=== PATIENT | female | born 1995 | race Caucasian/White ===

== ENCOUNTER → 2018-01-24 13:20 | Outpatient (CLI) | payer OTHER, SELFPAY ==
--- NOTE | 2018-01-24 13:28 | VDLE_ITS ---
Reason For Study: Pain RIGHT LEFT GSV is normal. GSV is normal. CFV is compressible, spontaneous, phasic, CFV is compressible, spontaneous, phasic, competent and demonstrates normal competent, and demonstrates normal augmentation. augmentation. FV is compressible, spontaneous, phasic, FV is compressible, spontaneous, phasic, competent and demonstrates normal competent and demonstrates normal augmentation. augmentation. POP V is compressible, spontaneous, phasic, POP V is compressible, spontaneous, phasic, competent and demonstrates normal competent and demonstrates normal augmentation. augmentation. T/P Trunk is compressible. T/P Trunk is compressible. PTV is compressible. PTV is compressible. RT PerV is compressible. LT PerV is compressible. Procedure Exam performed in department. A preliminary report was called and/or faxed to Nithin To. Interpretation Summary Deep veins of the lower extremities are bilaterally patent and compressible segmentally. There is no evidence of deep vein thrombosis on either side. Valvular competence appears intact within the proximal deep venous systems bilaterally. The greater saphenous veins appear bilaterally patent and compressible segmentally. Ordering Physician: Nithin To Referring Physician: Nithin To Performed By: Candace Mike, PINEDA, RVT
== END ==
PROVIDERS: Visit Provider Physician Assistant
DX: M79.661 Pain in right lower leg (principal); M79.662 Pain in left lower leg
CPT/HCPCS: 93970

== ENCOUNTER → 2018-01-29 12:29 | Outpatient (CLI) | payer OTHER, SELFPAY ==
--- NOTE | 2018-01-29 12:33 | MRI_ITS ---
STUDY: MRI RIGHT KNEE REASON FOR EXAM: Posterior pain and instability after injury in December. TECHNIQUE: Standardized fat and water weighted pulse sequences were obtained in all 3 orthogonal planes. COMPARISON: None. FINDINGS: Normal medial meniscus. Normal hyaline cartilage of the medial femorotibial compartment. Normal medial femoral condyle and tibial plateau. Normal medial collateral ligamentous complex (MCL). Normal distal semimembranosus, gracilis and semitendinosus tendons. Normal lateral meniscus. Normal hyaline cartilage of the lateral femorotibial compartment. Normal lateral femoral condyle and tibial plateau. Normal proximal tibiofibular articulation. Normal lateral collateral (fibular) ligament. Normal popliteus tendon. Normal biceps femoris tendon. There is mild interstitial edema in the distal anterior cruciate ligament (T2 sagittal image 11) suggestive of a low-grade sprain. Normal posterior cruciate ligament (PCL). Normal congruent patellofemoral articulation. Normal hyaline cartilage of the patellofemoral compartment. Normal medial and lateral patellar retinaculum. Normal quadriceps tendon. Normal patellar tendon. Normal Hoffa's fat pad. There is no joint effusion. The soft tissues are unremarkable. The otherwise visualized osseous structures are unremarkable. MRI/Lower Ext Joint Only (Routine) IMPRESSION: Low-grade sprain of the anterior cruciate ligament. Electronically Signed: Loco Moore MD at 13:54 EDT Tel , Service support ,
== END ==
PROVIDERS: Visit Provider Physician Assistant
DX: S83.511A Sprain of anterior cruciate ligament of right knee, initial encounter (principal)
CPT/HCPCS: 73721

== ENCOUNTER 2018-02-28 15:30 | Outpatient (RCR) | payer OTHER, SELFPAY ==
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
--- NOTE | 2018-03-05 09:50 | HP.PTDCSUM ---
HP - PT D/C Summary It has been my pleasure to treat TAYLOR TREJO under orders from SIRI Du, for the diagnosis of R ACL sprain for a total of 6 visit(s). Discharge Date: 02/28/18 Please see the following information for a summary of their discharge status. - Subjective Subjective: Pt. reports I am doing a lot better. She is pleased with PT. She reports occassional soreness with walking for 4+ hours and slight soreness by then end of the day. Pt. reports being HEP compliant without issues. Pt. reports being 99% better overall. - Pain Posterior R knee Pain Intensity (Out of 10): 0 - Overall Improvement % Improvement: 99 - Objective Objective/Function: ROM: 0-0-128deg mild soreness with end range flexion. MMT: 5/5 throughout knee and hip B LEs. GAIT: Normal pattern withtou icnrease in symptoms. STAIRS: normal patter no issues, no pain. Pt. reports being I with HEP and is pleased with progress. - Goals Goal 1:: Pt. to be I with HEP. Goal Progress: Goal Met Goal 2:: Pt. to have increased R knee ROM to 0-0-130deg without increase in pain allowing for increased gait mechanics. Goal Progress: Goal Met Goal 3:: Pt. to have increased RLE strength by 1/2 grade of all effected musculature allowing for increased stability at RLE. Goal Progress: Goal Met Goal 4:: Pt. to resume all walking with normal gait mechanics for unlimited distances without increase in symptoms. Goal Progress: Goal Met Goal 5:: Pt. to resume all work activities without issues. Goal Progress: Goal Met - Plan Plan: Pt. to be DC to HEP at this point in time. - D/C Information Discharge Comments: Pt. is back to work with all issues. Pt. progressed with ROM and strengthening as expected. She is back to all activities without limitions. She has mild soreness with end range flexion, but does not effect fuctional daily activities. Pt. will be DC to HEP at this point in time. If there are questions or concerns regarding this patient's physical therapy, please feel free to call me at [phone]. Thank you for the referral of this patient. Sincerely, Anson Osorio
== END 2018-02-28 19:00 | disposition home or self-care (01) ==
LOC: PT 15:30
PROVIDERS: Visit Provider Physician Assistant
DX: S83.511D Sprain of anterior cruciate ligament of right knee, subsequent encounter (principal)
CPT/HCPCS: 97014; 97110; 97161; G0283

== ENCOUNTER → 2019-09-17 13:13 | Outpatient (CLI) | payer OTHER, SELFPAY ==
[2019-09-17 12:18] VITALS: BMI 34.2
[2019-09-17 13:38] LABS: Absolute Lymphocyte Count 2.08 X10^3/uL (0.83-4.51); Absolute Neutrophil Count 7.1 X10^3/uL (2.0-7.7); Basophil# 0.02 X10^3/uL; Basophil% 0.2 % (0-1); Eosinophil# 0.02 X10^3/uL; Eosinophils% 0.2 % (0-5); Hematocrit 38.8 % (37-47); Hemoglobin 12.7 g/dL (12.0-15.0); Lymphocyte # 2.08 X10^3/ul (4.0); Lymphocyte % 21.2 % (19-41); Mean Corp Hgb Conc 32.7 g/dL (32-36); Mean Corpuscular Hgb 28.4 pg (27.0-32.0); Mean Corpuscular Volume 86.8 fL (81-99); Mean Platelet Vol. 10.3 fl (6.2-12.0); Monocyte# 0.54 X10^3/uL; Monocyte% 5.5 % (0-10); NRBC Flagged by Analyzer 0 % (0-5); Neutrophil % 72.4 % (47-70); Platelet Count 357 K/mm3 (150-450); RBC Distribution Width CV 12.5 % (11.6-14.6); RBC Distribution Width SD 39.4 fl (35.1-43.9); Red Blood Count 4.47 M/mm3 (4.2-5.4); White Blood Count 9.8 K/mm3 (4.4-11.0)
[2019-09-17 13:49] LABS: Glucose Challenge Gest 1H 50g 119 mg/dL (70-140)
[2019-09-17 14:31] LABS: HIV - WCH Non-Reactive (Nonreactive); Hepatitis B Surface Antigen Non-Reactive (Nonreactive); Hepatitis C Antibody Non-Reactive (Nonreactive); Rubella IgG 150.5 IU/mL
[2019-09-17 16:27] LABS: Amphetamine Urine VISTA NEGATIVE (<1000 ng/mL); Barbiturate Urine VISTA NEGATIVE (< 200 ng/mL); Benzodiazepine Urine VISTA NEGATIVE (< 200 ng/mL); Cocaine Urine VISTA NEGATIVE (< 300 ng/mL); Ecstacy Urine VISTA NEGATIVE (< 500 ng/mL); Methadone Urine VISTA NEGATIVE (< 300 ng/mL); PCP Urine VISTA NEGATIVE (< 25 ng/mL); THC Urine VISTA NEGATIVE (< 50 ng/mL); Vista UDS pH Range 6
--- NOTE | 2019-09-17 16:50 | US_ITS ---
STUDY: FIRST TRIMESTER OBSTETRICAL ULTRASOUND REASON FOR EXAM: Female, 24 years old. well-being. LMP: July 19, 2019. TECHNIQUE: Transvaginal TECHNICAL QUALITY: Adequate. PRIOR ULTRASOUND: None. FINDINGS: There is visualization of a single gestational sac in a normal intrauterine position. The mean sac diameter (MSD) measures 3.45 cm, indicating an estimated gestational age (EGA) of 8 weeks, 6 days. The gestational sac shape is within normal limits. There is a visualized yolk sac. The yolk sac measures 0.52 cm. The placenta is non-visualized. There is visualization of a live embryo. The crown-rump length (CRL) measures 1.9 cm, indicating an estimated gestational age (EGA) of 8 weeks, 4 days. There is demonstrated cardiac activity with a heart rate of 157 bpm. The estimated gestation age (EGA) by LMP is 8 weeks, 4 days. The estimated date of delivery (JULIA) by LMP is April 24, 2020. The estimated gestation age (EGA) by US is 8 weeks, 5 days. The estimated date of delivery (JULIA) by US is April 23, 2020. The uterus measures 9.2 x 5.5 x 5.1 cm. There is no demonstrated uterine fibroid. The cervix is closed. The right ovary measures 2.3 x 1.6 x 1.3 cm. There is no right ovarian cyst. There is no visualized right adnexal mass or complex lesion. Normal Doppler signal. The left ovary measures 3.0 x 2.3 x 2.1 cm. There is a 1.7 x 1.7 x 1.4 cm cyst. There is no visualized left adnexal mass or complex lesion. Normal Doppler signal. There is no fluid in the cul de sac. US/Init OB < 14Wks US IMPRESSION: 1. Single intrauterine at 8 weeks, 5 days. JULIA is April 23, 2020. 2. heart rate of 157 bpm. 3. Left ovarian corpus luteum cyst. Electronically Signed: Edmundo Ventura DO at 17:30 EDT Tel [phone], Service support ,
[2019-09-17 17:46] LABS: Chlamydia Trachomatis by PCR Negative (Negative); Neisserai gonorrhoeae by PCR Negative (Negative); Probe Check PASS; Sample Adequacy Control PASS; Specimen Processing Control PASS
[2019-09-18 04:37] LABS: Rapid Plasmin Reagin (RPR) NONREACTIVE (NONREACTIVE)
[2019-09-24 16:30] LABS: HPV Reflexed? NOT INDICATED
== END ==
PROVIDERS: Referring Provider Obstetrics & Gynecology; Visit Provider Obstetrics & Gynecology
DX: O99.210 Obesity complicating pregnancy, unspecified trimester (principal); E66.9 Obesity, unspecified; Z3A.00 Weeks of gestation of pregnancy not specified; Z12.4 Encounter for screening for malignant neoplasm of cervix
CPT/HCPCS: 36415; 76801; 80307; 82950; 85025; 86592; 86703; 86762; 86803; 86850; 86900; 86901; 87086; 87088; 87340; 87491; 87591; 88175; G0145

== ENCOUNTER → 2019-10-21 09:37 | Outpatient (CLI) | payer OTHER, SELFPAY ==
[2019-10-21 09:01] VITALS: BMI 34.2
[2019-10-21 10:41] LABS: NATERA MAILED SPECIMEN
== END ==
PROVIDERS: Referring Provider Obstetrics & Gynecology; Visit Provider Obstetrics & Gynecology
DX: Z34.81 Encounter for supervision of other normal pregnancy, first trimester (principal)
CPT/HCPCS: 36415

== ENCOUNTER → 2019-12-14 12:08 | Outpatient (CLI) | payer OTHER, SELFPAY ==
[2019-11-18 14:38] VITALS: BMI 34.2
--- NOTE | 2019-12-14 12:08 | US_ITS ---
STUDY: SECOND AND THIRD TRIMESTER OBSTETRICAL ULTRASOUND REASON FOR EXAM: Female, 24 years old routine survey LMP: 07/19/2019 TECHNIQUE: Transabdominal TECHNICAL QUALITY: Adequate. PRIOR ULTRASOUND: 09/17/2019 FINDINGS: There is a single intrauterine fetus. The fetus is in an transverse lie with the head on the maternal left side. There is demonstrated cardiac activity with a heart rate of 144 bpm. There is a normal amniotic fluid volume. The largest amniotic fluid pocket measures 4.6 cm. . The placenta is anterior in location and is not low lying. There are Grade 0 placental changes. The cervix measures 4.1 cm in length. The bilateral adnexal regions are normal. BIOMETRY: BPD: 4.79 cm: 20 weeks, 3 days HC: 18.2 cm: 20 weeks, 4 days AC: 17.4 cm: 22 weeks, 2 days FL: 3.26 cm: 20 weeks, 1 days age by current US: 20 weeks, 3 days. JULIA by current US: 04/27/2020. Estimated weight: 410 grams, +/- 61 grams, 50 %. age by prior US: 21 weeks, 2 days. JULIA by prior US: 04/23/2020. Age by LMP: 21 weeks, 1 days. JULIA by LMP: 04/24/2020. ANATOMY: Gender: Female Cranium: Normal lateral ventricles. Normal choroid plexus. Normal cerebellum. Normal cisterna magna. Normal face, nose and lips. Chest: Normal 4-chamber heart. Abdomen/Pelvis: Normal diaphragm. Normal stomach. Normal abdominal wall. Normal cord insertion. Normal 3 vessel cord. Normal kidneys. Normal bladder. Spine: Normal cervical spine. Normal thoracic spine. Normal lumbar spine. Normal sacrum. Extremities: Normal bilateral upper extremities. Normal bilateral lower extremities. US/OB Anatomy Scan IMPRESSION: Single live intrauterine at 20 weeks 5 days by current ultrasound with JULIA of 04/27/2020. Heart rate of 144 bpm. No suspicious sonographic findings, there is been normal growth noted since the previous study. Electronically Signed: Basilio Webster MD at 13:39 EDT , Service support ,
== END ==
PROVIDERS: Referring Provider Obstetrics & Gynecology; Visit Provider Obstetrics & Gynecology
DX: Z34.90 Encounter for supervision of normal pregnancy, unspecified, unspecified trimester (principal)
CPT/HCPCS: 76805

== ENCOUNTER → 2020-02-03 13:44 | Outpatient (CLI) | payer OTHER, MEDICAID, SELFPAY ==
[2020-01-11 14:31] VITALS: BMI 34.2
[2020-02-03 14:37] LABS: Absolute Lymphocyte Count 2.68 X10^3/uL (0.83-4.51); Absolute Neutrophil Count 10.5 X10^3/uL (2.0-7.7); Basophil# 0.04 X10^3/uL; Basophil% 0.3 % (0-1); Eosinophil# 0.08 X10^3/uL; Eosinophils% 0.6 % (0-5); Hematocrit 35.4 % (37-47); Hemoglobin 11.6 g/dL (12.0-15.0); Lymphocyte # 2.68 X10^3/ul (4.0); Lymphocyte % 18.7 % (19-41); Mean Corp Hgb Conc 32.8 g/dL (32-36); Mean Corpuscular Hgb 28.9 pg (27.0-32.0); Mean Corpuscular Volume 88.1 fL (81-99); Mean Platelet Vol. 9.8 fl (6.2-12.0); Monocyte# 0.89 X10^3/uL; Monocyte% 6.2 % (0-10); NRBC Flagged by Analyzer 0 % (0-5); Neutrophil # 10.53 X10^3/uL (2.7-7.7); Neutrophil % 73.4 % (47-70); Platelet Count 351 K/mm3 (150-450); RBC Distribution Width CV 13.2 % (11.6-14.6); RBC Distribution Width SD 42.4 fl (35.1-43.9); Red Blood Count 4.02 M/mm3 (4.2-5.4); White Blood Count 14.3 K/mm3 (4.4-11.0)
[2020-02-03 15:00] LABS: Glucose Challenge Gest 1H 50g 77 mg/dL (70-140)
== END ==
PROVIDERS: Referring Provider Obstetrics & Gynecology; Visit Provider Obstetrics & Gynecology
DX: Z34.90 Encounter for supervision of normal pregnancy, unspecified, unspecified trimester (principal)
CPT/HCPCS: 36415; 82950; 85025

== ENCOUNTER → 2020-03-31 16:29 | Outpatient (CLI) | payer OTHER, MEDICAID, SELFPAY ==
[2020-03-31 16:23] VITALS: BMI 34.2
[2020-03-31 16:44] LABS: Absolute Lymphocyte Count 2.52 X10^3/uL (0.83-4.51); Basophil# 0.03 X10^3/uL; Basophil% 0.2 % (0-1); Eosinophil# 0.04 X10^3/uL; Eosinophils% 0.3 % (0-5); Hematocrit 37.4 % (37-47); Hemoglobin 12.3 g/dL (12.0-15.0); Lymphocyte # 2.52 X10^3/ul (4.0); Lymphocyte % 17.4 % (19-41); Mean Corp Hgb Conc 32.9 g/dL (32-36); Mean Corpuscular Hgb 28.6 pg (27.0-32.0); Mean Platelet Vol. 10.3 fl (6.2-12.0); Monocyte% 5.5 % (0-10); NRBC Flagged by Analyzer 0 % (0-5); Neutrophil # 10.99 X10^3/uL (2.7-7.7); Platelet Count 346 K/mm3 (150-450); RBC Distribution Width CV 12.8 % (11.6-14.6); RBC Distribution Width SD 39.9 fl (35.1-43.9); White Blood Count 14.5 K/mm3 (4.4-11.0)
[2020-03-31 17:00] LABS: ALB/GLOB Ratio 0.6 RATIO (0.9-2.4); AST(SGOT) 20 U/L (15-37); Alanine Aminotransfer ALT/SGPT 20 U/L (13-56); Albumin, Serum 2.6 g/dL (3.2-5.0); Alkaline Phosphatase 181 U/L (45-117); Anion Gap 4 (5-15); BUN 8 mg/dL (7-18); BUN/Creat Ratio 13.3 RATIO (10-20); Calcium,Total 9.3 mg/dL (8.5-10.1); Chloride 106 mmol/L (98-107); EST Glomerular Filtration Rate 130 mL/min (>60); Est Glom Filt Rate - Afr Amer 158 mL/min (>60); Globulin 4.5 g/dL (2.2-4.2); Glucose 88 mg/dL (74-106); Potassium 4.2 mmol/L (3.5-5.1); Protein, Total 7.1 g/dL (6.4-8.2); Sodium Level 137 mmol/L (136-145)
== END ==
PROVIDERS: Referring Provider Obstetrics & Gynecology; Visit Provider Obstetrics & Gynecology
DX: O21.9 Vomiting of pregnancy, unspecified (principal); Z3A.00 Weeks of gestation of pregnancy not specified
CPT/HCPCS: 36415; 80053; 85025; 87081

== ENCOUNTER → 2020-04-22 17:49 | Outpatient (CLI) | payer OTHER, MEDICAID, SELFPAY ==
[2020-04-08 15:20] VITALS: BMI 37.4
[2020-04-22 14:46] VITALS: BMI 38.4
== END ==
PROVIDERS: Referring Provider Obstetrics & Gynecology; Visit Provider Obstetrics & Gynecology
DX: Z11.59 Encounter for screening for other viral diseases (principal)
CPT/HCPCS: 87635; C9803; U0003

== ENCOUNTER 2020-04-30 00:45 | Inpatient (IN) | payer OTHER, MEDICAID, SELFPAY ==
[2020-04-29 14:50] VITALS: BMI 38.1
[2020-04-30] VITALS (85 sets, daily range): BP systolic 113–183; BP diastolic 59–122; PULSE 44–179; RESP 16–18; TEMP 36.2–37.8; O2SAT 82–100; BMI 37.6
[2020-04-30] MEDS: Lactated Ringers 1,000 ML 200 ML IV ×2 (01:34→14:17)
[2020-04-30 01:53] LABS: Absolute Lymphocyte Count 2.88 X10^3/uL (0.83-4.51); Absolute Neutrophil Count 10.9 X10^3/uL (2.0-7.7); Basophil# 0.05 X10^3/uL; Basophil% 0.3 % (0-1); Eosinophil# 0.03 X10^3/uL; Eosinophils% 0.2 % (0-5); Hematocrit 39.8 % (37-47); Hemoglobin 13.1 g/dL (12.0-15.0); Lymphocyte # 2.88 X10^3/ul (4.0); Lymphocyte % 19.1 % (19-41); Mean Corp Hgb Conc 32.9 g/dL (32-36); Mean Corpuscular Hgb 28.7 pg (27.0-32.0); Mean Corpuscular Volume 87.1 fL (81-99); Mean Platelet Vol. 10.6 fl (6.2-12.0); Monocyte# 1.02 X10^3/uL; Monocyte% 6.8 % (0-10); NRBC Flagged by Analyzer 0 % (0-5); Neutrophil # 10.92 X10^3/uL (2.7-7.7); Neutrophil % 72.7 % (47-70); Platelet Count 336 K/mm3 (150-450); RBC Distribution Width CV 13.2 % (11.6-14.6); RBC Distribution Width SD 41.6 fl (35.1-43.9); Red Blood Count 4.57 M/mm3 (4.2-5.4)
[2020-04-30 02:03] LABS: ROM Internal Control Test YES-OK TO RESULT pt. (Internal QC); ROM Patient Test POSITIVE (Negative)
[2020-04-30] MEDS: Lactated Ringers 500 ML 999 ML IV ×4 (02:10→08:05)
[2020-04-30] MEDS: fentaNYL-bupivacaine (epidural) 100 ML BAG EPIDURAL ×3 (03:05→14:16)
[2020-04-30] MEDS: Amnioinfusion- 0.9% NS 1,000 ML IV.SOLN. 300 ML INTRA-UTER (04:42)
--- NOTE | 2020-04-30 06:04 | HP.PCM_ITS ---
- Problem List (1) Active labor at term Status: Acute (2) 38 weeks gestation of Status: Acute Comment: covid testing ordered 04/13/20c, negative results (3) Atypical squamous cells of undetermined significance (ASCUS) on Papanicolaou smear of cervix Status: Acute Comment: Dracut on 10/21/19, repeat pap PP (4) Obesity affecting Status: Acute Qualifiers: Comment: 1 tm glucola nl, encourage healthy weight gain (5) Status: Acute Qualifiers: Comment: NIPT- low risk, declined carrier. declined ntd screening. anatomy us normal (6) Supervision of high-risk Status: Acute Comment: PRR JULIA 04/24/20 girl Suresh boyfriend Osvaldo History and Physical Date of Admission: 04/30/20 Intake Vital Signs 04/29/20 Height 5 ft 5 in 04/29/20 Weight: 229 lb 2 oz 04/29/20 BMI 38.1 04/29/20 BP 118/80 Intake Visit Reasons: 40 WK OB Commercial Collections Specialist Required: No Is patient in pain?: No Allergies No Known Allergies Allergy (Verified 04/29/20 14:50) Medications docosahexaenoic acid 200 mg capsule mg PO 09/17/19 [History Confirmed 04/29/20] promethazine 12.5 mg tablet 12.5 mg PO Q6H PRN #30 tab 03/31/20 [Rx Confirmed 04/29/20] Last Menstral Period: 07/19/19 Zika: Zika virus screening: Negative : No PFSH PFSH Medical History Knee pain (Acute) Surgical History S/P appendectomy (Resolved) S/P left knee surgery (Resolved) S/P tonsillectomy and adenoidectomy (Resolved) Family History Mother Back pain Chest pain Leaky heart valve Grandmother Diabetes Social History (Updated 04/29/20 @ 21:[address] Aby Ruelas MD) Smoking Status: Never smoker alcohol intake: never substance use type: does not use caffeine: No what type of physical activity do you participate in: none, yoga frequency: 1-2 times per week seatbelt use: always do you feel safe at home: Yes additional social history: Ltmwbtvtf[employer]Urige[employer]Ptt[employer] beacon Patient works at [employer] Pregancy History 1 Elective abortions Hx Para Spontaneous abortions Hx # Term Pregnancies Ectopic pregnancies Hx # Pregnancies Multiple births # of living children HPI 40 WK OB: Details: TAYLOR TREJO is a 25 year old who presents for routine OB visit. OB Visit JULIA Calculator Estimated Delivery Date Method Current WG Current Estimate 04/24/20 LMP (Certain) 40w 5d Expected Delivery Route/Plan Labor Preferences- CB/BF classes: march labor support person: Osvaldo labor intervention preferences: wants to see how far she can get natural, but likely getting epidural pain management options preferred: open to epidural cut cord/dad catch: maybe cord : Yes PP control planned: Nexplanon at PP visit discussed possible routes of delivery and associated risks: discussed possible delivery modalities and possible indications for each including R/B/A of , VAVD, and CS. questions answered. special requests: none Specific Issue/Plans flu vaccine: 03/04 tdap vaccine: given 02/02 rhogam: N/A LARC form signed: 02/18 movement and labor precautions reviewed. Problem list reviewed and updated with the most current plan of care details and appropriate orders placed. Relevant counseling for the gestational age provided. Continue routine care and follow up unless otherwise noted in visit notes/problem list details Initial Weight: 206 lb Date EGA Weight BP Urine Prot Glucose FHR FuHt Pres Dilation Effaced St Visit Note 09/17/19 8w 4d 206 lb (+0 oz) 128/84 171 10/21/19 13w 3d 198 lb 8 oz (-7 lb 8 oz) 120/70 Negative Negative 160 SM- no vb cramping colp today nipt 11/18/19 17w 3d 199 lb 6 oz (-6 lb 10 oz) 114/72 Negative Negative 155 SM- no vb lof cramping. 12/15/19 21w 2d 199 lb 8 oz (-6 lb 8 oz) 116/72 Negative Negative 150 21 SM- no vb cramping doing well 01/11/20 25w 1d 203 lb (-3 lb) 100/62 Negative Negative 145 25 SM- no vb lof good fm no regular ctx 02/03/20 28w 3d 116/70 155 28 GP - denies LOF/VB/DFM. Doing well. PTL precautions reviewed. 02/19/20 30w 5d 212 lb 4 oz (+6 lb 4 oz) 110/60 03/04/20 32w 5d 213 lb (+7 lb) 126/70 Negative Negative 145 32 Cephalic SM- no vb lof good fm no regular ctx 03/18/20 34w 5d 219 lb 4 oz (+13 lb 4 oz) 120/76 125 34 Cephalic GP - no LOF, VB, DFM, regular ctx. Denies complaints. 03/31/20 36w 4d 217 lb 2 oz (+11 lb 2 oz) 118/68 Trace Negative 130 36 Cephalic 0 SM- no vb lof good fm no regular ctx co N V D no fevers, ordered cbc cmp 04/08/20 37w 5d 225 lb (+19 lb) 120/84 Negative Negative 135 37 Cephalic 1 20 -3 SM- no vb lof good fm no regular ctx 04/15/20 38w 5d 225 lb 8 oz (+19 lb 8 oz) 110/88 Negative Negative 115 38 Cephalic 2 60 -2 GP - no LOF, VB, DFM, reg ular ctx. Labor precautions reviewed. 04/22/20 39w 5d 231 lb (+25 lb) 124/79 Negative Negative 125 39 Cephalic 2 60 -2 SM- no vb lof good fm no regular ctx covid testing today 04/29/20 40w 5d 229 lb 2 oz (+23 lb 2 oz) 118/80 Negative Negative 130 40 Cephalic 3 70 -2 GP- no LOF, VB, DFM, ctx. Discussed induction. Scheduled for post-dates induction tomorrow am. ACOG First Trimester First Trimester: Desire for , Alcohol, Tobacco Cessation, Illicit/Recreational Drug/Substance Use, Intimate Partner Violence, Barriers to care, Unstable Housing, Communication Barriers, Environmental/Work Hazards, Anticipated Course of Care, Toxoplasmosis Precations, Use of Any medications, Sexual activity, Exercise, Dental Care, Sauna/Hot tub use, Seat Belt use, Childbirth classes/Hospital facilities, , Travel, Indications for US and Screening for Aneuploidy Diagnostics Diagnostics Diagnostics Glucose 1 Hr 50 gm 77 mg/dL (70-140) 02/03/20 Hgb 12.3 g/dL (12.0-15.0) 03/31/20 Hct 37.4 % (37-47) 03/31/20 Details: HIV: Urine Culture: Sequential Screen: NIPT Screen: ROS Const Reports system reviewed and no additional complaints, except as docu Eyes Reports system reviewed and no additional complaints, except as docu ENT Reports system reviewed and no additional complaints, except as docu Card Reports system reviewed and no additional complaints, except as docu Resp Reports system reviewed and no additional complaints, except as docu GI Reports system reviewed and no additional complaints, except as docu Denies abnormal vaginal bleeding, Denies painful urination, Denies nipple discharge, Denies pelvic pain, Denies vaginal discharge, Denies vaginal odor, Denies vaginal itching Musc Reports system reviewed and no additional complaints, except as docu Skin/Breast Reports system reviewed and no additional complaints, except as docu, Denies nipple discharge Neuro Yes system reviewed and no additional complaints, except as docu Psych Reports system reviewed and no additional complaints, except as docu Exam Const General: cooperative, healthy appearing, comfortable, no acute distress, well developed, well groomed Nutritional Appearance: average body habitus, well nourished Orientation: alert, awake, oriented x3 HENOR Head: normal to inspection, normocephalic, atraumatic Eyes Pupils: PERRL, accommodation normal Resp Effort & Inspection: normal respiratory effort, able to speak in complete sentences, symmetric chest movement Cardio Rate: regular rate GI Palpation: soft, no guarding, no masses, nontender Skin General: no rashes or lesions noted, elasticity normal, turgor normal Neuro General: alert, awake, oriented x3 Cranial Nerves: CN's II-XI intact bilaterally, sense of smell intact, PERRL, accommodation normal, EOM intact bilaterally Speech: speech normal Gait: normal gait Psych Appearance: grossly normal, well kempt Mental Status: mental status grossly normal Mood: congruent mood Affect: normal affect Speech and Movement: speech and movement normal Attitude: cooperative Thought Process: normal Thought Content: normal Judgment: judgment good Results POC Urinalysis 2 Dip (Clinic) Office Urine Glucose Negative Last Edit by Arcelia Mckeon on 04/29/20 15:06 Office Urine Protein Negative Last Edit by Arcelia Mckeon on 04/29/20 15:06 Assessment & Plan Problems 1. 38 weeks gestation of Z3A.38 covid testing ordered 04/13/20, negative results 2. Supervision of high-risk O09.90 PRR JULIA 04/24/20 girl Suresh boyfriend Osvaldo 3. Atypical squamous cells of undetermined significance (ASCUS) on Papanicolaou smear of cervix R87.610 Dracut on 10/21/19, repeat pap PP 4. Obesity affecting O99.210 1 tm glucola nl, encourage healthy weight gain 5. 40 weeks gestation of Z3A.40 NIPT- low risk, declined carrier. declined ntd screening. anatomy us n ormal Plan Patient admitted in active labor. Pitocin prn. Pain management: interested in natural, but open to epidural GBS negative. Blood type O+ Rubella immune COVID negative 04/22 Management of any complications: none I have reviewed the [facility] and made any clinically relevant updates. Orders Orders: POC Urinalysis 2 Dip (Clinic) Today Coding Level of Care Code OB Routine Diagnoses 38 weeks gestation of Z3A.38 Supervision of high-risk O09.90 Atypical squamous cells of undetermined significance (ASCUS) on Papanicolaou smear of cervix R87.610 Obesity affecting O99.210 40 weeks gestation of Z3A.40 ??Weeks of gestation: 40 weeks UPDATE- I have seen the patient and performed any clinically relevant updates to the history and physical exam. Aby Ruelas MD
[2020-04-30] MEDS: Mag Hydrox/Al Hydrox/Simeth 30 ML UDC PO ×2 (06:34→12:23)
[2020-04-30] MEDS: Ondansetron 4 MG/2 ML Vial IV (07:30)
[2020-04-30] MEDS: Terbutaline 1 MG/ML Vial 0.25 MG SC (07:54)
[2020-04-30] MEDS: Lactated Ringers 1,000 ML 999 ML IV (08:28)
[2020-04-30] MEDS: Oxytocin 30 units/NS 500 ml 30 UNITS/500 ML IV.SOLN IV (12:45)
[2020-04-30] MEDS: Oxytocin 30 units/NS 500 ml 30 UNITS/500 ML IV.SOLN 334 UNITS IV (15:22)
[2020-04-30] MEDS: Methylergonovine 0.2 MG/ML Ampul IM (15:25)
--- NOTE | 2020-04-30 15:47 | PCM.OPRPT ---
Problem List (1) Active labor at term Status: Acute (2) 38 weeks gestation of Status: Acute Comment: covid testing ordered 04/13/20c, negative results (3) Atypical squamous cells of undetermined significance (ASCUS) on Papanicolaou smear of cervix Status: Acute Comment: [place] on 10/21/19, repeat pap PP (4) Obesity affecting Status: Acute Qualifiers: Comment: 1 tm glucola nl, encourage healthy weight gain (5) Status: Acute Qualifiers: Comment: NIPT- low risk, declined carrier. declined ntd screening. anatomy us normal (6) Supervision of high-risk Status: Acute Comment: PRR JULIA 04/24/20 girl Suresh boyfriend Osvaldo Vaginal Delivery Maternal Presentation: Active Labor 25-year-old G1, P0 at 40 weeks gestation admitted in active labor. She made change to complete dilation without augmentation. She pushed for over 2 hours with good maternal effort and had brought baby down to +2 station. It was noted that baby was beginning to have prolonged decels with contractions that required additional time for recovery. The recommendation was made to proceed with a forceps assisted vaginal delivery. Patient understood the risks and benefits of operative vaginal delivery and agreed to proceed. Amniotic Membrane Rupture Type: Spontaneous at home Amniotic Fluid Description: Clear Final JULIA: 04/24/20 Gestational age: 40 Weeks and 6 Days Date of Procedure: 04/30/20 Pre-Operative Diagnosis: Active labor, category 2 heart rate tracing Post-Operative Diagnosis: Same Surgery/ Procedure Performed: Forceps Assisted Vaginal Delivery Type of Anesthesia: Epidural Description of Procedure: Patient had been pushing for 2 hours with excellent maternal effort, but decelerations were noted with every contraction, requiring additional time to return to baseline therefore the recommendation was made to proceed with a forceps assisted vaginal delivery. Preston-Luikart forceps were applied in the standard fashion and application was found to be good. Pulled with 1 contraction with no excessive force used. No episiotomy was required. Total application time was less than 1 minute. When the head was noted to be , the forceps were removed. The head delivered in the DEVIN presentation. The head was delivered atraumatically and a tight nuchal cord was noted which was delivered through as this could not be easily reduced. The anterior and posterior shoulders delivered without complication followed by the rest of the infant and the was placed on the maternal abdomen. Delayed cord clamping was employed for approximately 60 seconds. Cord was clamped and cut and gentle traction was applied to the cord and the placenta delivered spontaneously immediately following it was noted to be intact with three-vessel cord. Uterine atony was noted immediately after delivery of the placenta and a dose of Methergine was administered. The perineum and vagina were inspected and midline second-degree laceration and midline periurethral laceration which were repaired in the standard fashion using 3-0 Vicryl rapide suture. EBL was 250 cc. Patient and infant tolerated delivery well. Presentation: Vertex, DEVIN Placental Delivery Description: Spontaneous Placenta Disposition: [facility] Cord Vessel Description: 3 Vessels Cord Entanglement: Around neck x 1, tight Estimated Blood Loss: 250 cc Infant A gender: Female Laceration: Midline, Periurethral Extnsion/lac, 2nd degree Medications given after delivery: IV Pitocin, IM Methergin Complications: None Multi Select Codes - Urinary/Genital Urinary/Genital CPT Codes: 69756 Vaginal Delivery global pkg - forceps assisted delivery
[2020-04-30] MEDS: Acetaminophen 500 MG Tablet 1000 MG PO (16:24)
[2020-04-30] MEDS: Ibuprofen 600 MG Tablet PO (19:53)
[2020-05-01] VITALS (7 sets, daily range): BP systolic 102–127; BP diastolic 57–72; PULSE 79–97; RESP 16; TEMP 36.5–36.7
[2020-05-01] MEDS: Ibuprofen 600 MG Tablet PO ×2 (03:30→12:27)
[2020-05-01] MEDS: Acetaminophen 500 MG Tablet 1000 MG PO ×2 (05:32→14:27)
--- NOTE | 2020-05-01 09:41 | PCM.PN.OB ---
Patient Problems: Active and Suspected Problems (Last Reviewed 04/29/20 @ 14:49 by Arcelia Mckeon) Active labor at term (Acute) 38 weeks gestation of (Acute) covid testing ordered 04/13/20c, negative results Supervision of high-risk (Acute) PRR JULIA 04/24/20 girl Suresh boyfriend Osvaldo Atypical squamous cells of undetermined significance (ASCUS) on Papanicolaou smear of cervix (Acute) [place] on 10/21/19, repeat pap PP Obesity affecting (Acute) 1 tm glucola nl, encourage healthy weight gain (Acute) NIPT- low risk, declined carrier. declined ntd screening. anatomy us normal Subjective: Patient doing well without complaints. Tolerating PO. Ambulating and voiding without difficulty. Breast feeding well. Denies chest pain, shortness of breath, calf pain/swelling, fevers, chills, lightheadedness. - Physical Exam Vitals/I&O's: Vital Signs Temp Pulse Resp BP Pulse Ox 98.0 F 82 16 102/60 98 05/01/20 08:43 05/01/20 08:44 05/01/20 08:43 05/01/20 08:44 04/30/20 19:45 Oxygen Delivery Method Room Air Weight: 226 lb 6.636 oz Body Mass Index (BMI) 37.6 Intake and Output for Last 24 Hours 04/29/20 04/30/20 05/01/20 23:59 23:59 23:59 Intake Total 5611.65 / 5611.65 Output Total 2775 / 2775 200 / 200 Balance 2836.65 / 2836.65 -200 / -200 General: Alert, Oriented x3, Cooperative, No apparent distress, Well developed, Well nourished HEENT: Atraumatic, PERRLA, EOMI, Normocephalic Neck: Supple, No JVD Lungs: Normal air movement Cardiovascular: Regular rate Abdomen: Soft, Non Tender, Non-Distended Extremities: No edema, No Calf Tenderness Neurological: Cranial nerves II-XII grossly intact, Neuro grossly intact Psych/Mental Status: Normal Affect, Appropriate Current Medications Acetaminophen (Acetaminophen 500 Mg Tablet) 1,000 mg PO Q8H PRN PRN PRN Reason: Pain Score 1-3 Last Admin: 05/01/20 05:32 Dose: 1,000 mg Documented by: Bisacodyl (Bisacodyl 10 Mg Suppository) 10 mg RECTAL UD PRN PRN Reason: If no BM Dibucaine (Dibucaine 30 Gm Tube) 1 applic TOPICAL TID PRN PRN; Protocol PRN Reason: Discomfort Hydrocortisone (Hydrocortisone 2.5% Crm) 1 applic TOPICAL TID PRN PRN; Protocol PRN Reason: Discomfort Ibuprofen (Ibuprofen 600 Mg Tablet) 600 mg PO Q6H PRN PRN PRN Reason: Pain Score 1-3 Last Admin: 05/01/20 03:30 Dose: 600 mg Documented by: Methylergonovine Maleate (Methylergonovine 0.2 Mg/Ml Ampul) 0.2 mg IM X1 PRN PRN Reason: Excess bleeding/uterine atony Last Admin: 04/30/20 15:25 Dose: 0.2 mg Documented by: Ondansetron HCl (Ondansetron 4 Mg/2 Ml Vial) 4 mg IV Q4H PRN PRN PRN Reason: Nausea Oxycodone HCl (Oxycodone 5 Mg Tablet) 5 - 10 mg PO Q4H PRN PRN PRN Reason: Pain Score 4-10 Senna/Docusate Sodium (Senna/Docusate Sodium 1 Tablet) 1 - 2 tablet PO DAILY PRN PRN PRN Reason: Constipation Simethicone (Simethicone 80 Mg Tablet) 80 mg PO PCHS PRN PRN Reason: Indigestion/Stomach pain Sodium Chloride (0.9% Saline Lock 10 Ml Syringe) 5 - 15 ml IV UD PRN PRN Reason: SALINE FLUSH Medical Necessity - Tobacco Use Smoking Status: Never smoker Assessment/Plan All Active Problems (Last Reviewed 04/29/20 @ 14:49 by Arcelia Mckeon) Active labor at term (Acute) 38 weeks gestation of (Acute) Supervision of high-risk (Acute) Atypical squamous cells of undetermined significance (ASCUS) on Papanicolaou smear of cervix (Acute) Obesity affecting (Acute) (Acute) s/p PPD # 1 1. routine post delivery care 2. breast feeding- support given 3. rh positive 4. rubella immune DC to home today
--- NOTE | 2020-05-01 09:43 | DCINST_ITS ---
Discharge Diet: No Restrictions Discharge Activity: Return to Normal Activity, May not drive while taking narcotic pain medications., May Shower May resume sexual activity in: 4-6 weeks Additional Activity Instructions:: Nothing in the vagina for 4-6 weeks. You may return to work/school in 6 weeks. Call your doctor if your incision/area has: Continuous Slow Oozing, Sudden Increased Bleeding, Increased Pain/ Swelling, Increased Redness, Foul Smelling Discharge Additional Instructions: If you experience any of the following, contact your healthcare provider. * Bleeding that soaks a pad every hour for 2 hours * Fever 100.4 or higher * Unrelieved incision or abdominal pain * Swelling, redness, discharge or bleeding from your incision or episiotomy site * Your incision begins to separate * Problems urinating (including inability to urinate or burning while urinating). * Visual changes * Severe headache * Flu-like symptoms * Pain or redness in one of both of your breasts * Pain, warmth, tenderness or swelling in your legs, especially the calf area * Frequent nausea and vomiting * Symptoms of depression or anxiety If you experience any of the following, call 911 or go to the nearest Emergency Room. * Chest pain * Problems breathing * Seizure activity * Partial or complete paralysis of a body part, slurred speech, weakness or drooping of the face, or a sudden inability to walk or hold your balance Allergies/Adverse Reactions: Allergies No Known Allergies Allergy (Verified 04/29/20 14:50) Medications to take at Discharge promethazine 12.5 mg tablet 12.5 mg PO Q6H PRN #30 tab 03/31/20 Vits [Prenatabs FA] 1 tab PO DAILY 04/30/20 When: Call to make an appointment with your doctor in 6 weeks. If you had elevated Blood Pressure or 4th degree laceration you will need to be seen in 2 weeks. Primary Care Physician: Care Physician,No Primary [Primary Care Provider] - Test Results: Test results from this visit will be discussed in further detail at your follow- up appointment, if applicable.
== END 2020-05-01 18:30 | disposition home or self-care (01) | DRG 807 ==
PROVIDERS: Admitting Provider Obstetrics & Gynecology; Referring Provider Obstetrics & Gynecology; Visit Provider Obstetrics & Gynecology
DX: O76 Abnormality in fetal heart rate and rhythm complicating labor and delivery (principal); Z37.0 Single live birth; E66.9 Obesity, unspecified; O99.214 Obesity complicating childbirth; Z3A.40 40 weeks gestation of pregnancy; O69.1XX0 Labor and delivery complicated by cord around neck, with compression, not applicable or unspecified; O62.2 Other uterine inertia; O70.1 Second degree perineal laceration during delivery
CPT/HCPCS: 59025; 59050; 84112; 85025; 86850; 86900; 86901; 99218; J7030; J7120; G0378; J2405

== ENCOUNTER → 2020-06-07 | Outpatient (CLI) | payer OTHER, SELFPAY ==
[2020-06-07 11:44] VITALS: BMI 34.1
[2020-06-09 18:22] LABS: HPV Reflexed? NOT INDICATED
== END | disposition home or self-care (01) ==
LOC: LABSPEC 13:19
PROVIDERS: Referring Provider Nurse Practitioner Women's Health; Visit Provider Nurse Practitioner Women's Health
DX: Z12.4 Encounter for screening for malignant neoplasm of cervix (principal)
CPT/HCPCS: 88175; G0145

== ENCOUNTER → 2021-06-08 | Outpatient (CLI) | payer BC, MEDICAID, SELFPAY | END | disposition home or self-care (01) | LOC: LABSPEC 15:36 | PROVIDERS: Referring Provider Obstetrics & Gynecology; Visit Provider Obstetrics & Gynecology | DX: Z20.822 Contact with and (suspected) exposure to COVID-19 (principal) | CPT/HCPCS: 87635; U0005; U0003 ==

== ENCOUNTER → 2022-06-11 | Outpatient (CLI) | payer BC, MEDICAID, SELFPAY ==
[2022-06-12 22:06] LABS: Chlamydia By Nucleic Acid AMP Negative (Negative)
[2022-06-13 14:11] LABS: Gonococcus By Nucleic Acid AMP Negative (Negative)
== END | disposition home or self-care (01) ==
LOC: LABSPEC 11:03
PROVIDERS: Visit Provider Nurse Practitioner Women's Health
DX: Z11.3 Encounter for screening for infections with a predominantly sexual mode of transmission (principal)
CPT/HCPCS: 87491; 87591

== ENCOUNTER → 2023-06-20 | Outpatient (CLI) | payer BC, SELFPAY ==
--- OUTSIDE RECORDS SUMMARY | 2023-06-20 10:29 | XMS RPT_ITS | CCD ---
Author Name Unknown Address [address] [place] [id number] Organization [facility] Care Team Providers Care Loss Mitigation Specialist Name Role Phone PINA SALAZAR Primary Care Physician MR. PINA SALAZAR Primary Care Unavailable MANOJ JACKSON Attending Unavailable Allergies Allergy Classification Reported Allergen(s) Allergy Type Date of Onset Reaction(s) Facility (1 source) Penicillin; Translations: [penicillin] Drug Allergy [facility] Medications Current Medications Medication Drug Class(es) Dates Sig (Normalized) Sig (Original) etonogestrel 68 mg drug implant (1 source) Progestin Start: 01-20-2018 inject 1 dose by subcutaneous injection once Nexplanon 68 mg subcutaneous implant Dose : 68 mg = 1 EA, Subcutaneous, Once, 0 Refill(s) Start Date: 01/20/18 Status: Ordered Vital Signs Date Time Vital Sign Value Performing Clinician Faci [facility] 03-12-2022 18:35-0400 Body height 168.1 cm MANOJ SHAHANABala [facility] 03-12-2022 18:35-0400 Body temperature 98.42 [degF] MANOJ SHAHANABala [facility] 03-12-2022 18:35-0400 Body weight 190 kg MANOJ SHAHANABala [facility] 03-12-2022 18:35-0400 Diastolic blood pressure 102 mm[Hg] MANOJ SHAHANABala [facility] 03-12-2022 18:35-0400 Heart rate 107 /min MANOJ JACKSON DO [facility] 03-12-2022 18:35-0400 Respiratory rate 20 /min MANOJ JACKSON DO [facility] 03-12-2022 18:35-0400 Systolic blood pressure 156 mm[Hg] MANOJ JACKSON DO [facility] Encounters Encounter Date Encounter Type Care Provider Facility Start: 03-12-2022 End: 03-12-2022 Emergency department patient visit MR. PINA PORTER SIRI Facility:B Start: 03-12-2022 End: 03-12-2022 Emergency department patient visit MANOJ JACKSON DO [facility] Procedures Date Procedure Procedure Detail Performing Clinician Start: 09-19-2012 Appendectomy MANOJ FR NGUYEN Immunizations Immunization Date Immunization Notes Care Provider Fa cili 03-24-2016 influenza virus vacc ine, unspecified formulation MANOJ JACKSON Supersolid [facility] 01-02-2010 Human Papillomavirus Quadval MANOJ JACKSON Supersolid [facility] 09-02-2009 Human Papillomavirus Quadval MANOJ JACKSON Supersolid [facility] 07-05-2009 Human Papillomavirus Quadval MANOJ JACKSON Supersolid [facility] 10-11-2000 measles/mumps/rubell a virus vaccine MANOJ JACKSON Supersolid [facility] 10-11-2000 poliovirus vaccine, inactivated [facility] Payers Date Payer Category Payer Unknown [id number] 2022 Unknown [id number] 1995 Unknown [id number] Social History Date Type Detail Facility Tobacco smoking status Never smo ked tobacco (finding) [facility] Sex Assigned At Sex [facility] Evaluation + Plan note Note Date & Type Note Facility Evaluation + Plan note No data available for this section [facility] Hospital Discharge instructions Note Date & Type Note Facility Hospital Discharge instructions No data available for this section [facility] Progress note Note Date & Type Note Facility Progress note No data available for this section [facility] Summary Purpose Family History No Family History Records Found Advance Directives No Advanced Directives Records Found Additional Source Comments Care Team (unrecognized sect ion and content) Care Team Personnel Name: PINA PORTER Member Role: Primary Care Physician Address: Address: [address] [place] [address] Care Team Related Persons Name: RAKAN MONTES INFORMATION SOURCE (unrecogn ized section and content) FOR RECORDS PERTAINING TO PATIENTS WHO ARE OR HAVE BEEN ENROLLED IN A CHEMICAL DEPENDENCY/SUBSTANCEABUSE PROGRAM, SOME INFORMATION MAY BE OMITTED. This clinical summary was aggregated from multiple sources. Caution should be exercised in using it in the provision of clinical care. This summary normalizes information from multiple sources, and as a consequence, information in this document may materially change the coding, format and clinical context of patient data. In addition, data may be omitted in some cases. CLINICAL DECISIONS SHOULD BE BASED ON THE PRIMARY CLINICAL RECORDS. [employer] [facility]. provides no warranty or guarantee of the accuracy or completeness of information in this document.
[2023-06-20 11:28] LABS: HIV - WCH Non-Reactive (Nonreactive); Hepatitis B Surface Antigen Non-Reactive (Nonreactive); Hepatitis C Antibody Non-Reactive (Nonreactive); Syphilis Antibodies Reactive
[2023-06-21 06:08] LABS: HSV 1 IgG > 62.20 index (0.00-0.90); HSV 2 IgG < 0.91 index (0.00-0.90)
[2023-06-25 20:07] LABS: Chlamydia By Nucleic Acid AMP Negative (Negative); Gonococcus By Nucleic Acid AMP Negative (Negative)
[2023-06-26 01:07] LABS: HPV APTIMA, High Risk Positive (Negative)
[2023-06-26 16:37] LABS: HPV Reflexed? YES, CHARGE PATIENT
== END | disposition home or self-care (01) ==
PROVIDERS: Referring Provider Obstetrics & Gynecology; Visit Provider Obstetrics & Gynecology
DX: Z12.4 Encounter for screening for malignant neoplasm of cervix (principal); Z11.3 Encounter for screening for infections with a predominantly sexual mode of transmission
CPT/HCPCS: 36415; 86695; 86696; 86703; 86780; 86803; 87340; 87491; 87591; 87624; 88175; G0145

== ENCOUNTER → 2023-08-19 | Outpatient (CLI) | payer BC, SELFPAY ==
--- NOTE | 2023-08-19 | IMM_PTH ---
PATHOLOGY RESULTS PATIENT: TAYLOR TREJO LOC: [facility] U#:[id number] AGE/SX: ROOM: RE08/19/[address]: Dr. Margareth Zaragoza DO : 1995 BED: DIS: 08/19/2023 SPEC #: [id number] RECD: 08/21/23 11:02 STATUS: AMARJIT IVÁN #: [id number] AXEL: 08/19/23 00:[address]: Margareth Zaragoza DEPT: IMMUNOHISTOCHEMISTRY RECD BY: Pilar Branch ENTERED: 08/21/23 11:02 SP TYPE: IMMUNO OTHR DR: No Primary Care Phys Tissues: Uterine cervix, NOS Procedures: p16 (initial) KI-67 (add) PHYSICIAN & INSTITUTION [place] [id number] SPECIMEN INFORMATION: Tissue Source: B - Cervix at 6 o'clock Clinical Info: ASCUS, HPV positive Specimen Number: [id number] CPT code: 66944, 02748 METHODOLOGY: Deparaffinized sections of prefer/formalin-fixed tissue or PAP/DQ stained slides are incubated with monoclonal/polyclonal antibodies/oligonucleotide probes. Localization is made via biotin free immunoperoxidase method. Appropriate controls are performed and reacted as expected. Results on target cell population are indicated in the following table: RESULTS: ANTIBODY / CLONE RESULT Block B P16 (E6H4) negative Ki-67 (30-9) positive, basal layers only These tests were developed and their performance characteristics determined by [facility]. They may not have been cleared or approved by the U.S. Food and Drug Administration. The FDA has determined that such clearance or approval is not necessary. The above immunohistochemical/dualISH markers are ordered and reviewed by the Pathologist. INTERPRETATION: B. Cervix at 6 o'clock, biopsy: Negative for dysplasia. LUDY:sudha 08/22/2023
--- NOTE | 2023-08-19 10:40 | ECC_PTH ---
PATHOLOGY RESULTS PATIENT: TAYLOR TREJO LOC: [facility] #:[id number] AGE/SX: ROOM: RE08/19/[address]: Dr. Margareth Zaragoza DO : 1995 BED: DIS: 08/19/2023 SPEC #: [id number] RECD: 08/20/23 08:15 STATUS: AMARJIT IVÁN #: [id number] AXEL: 08/19/23 10:[address]: Margareth Zaragoza DEPT: SURGICAL PATHOLOGY RECD BY: Debbie Figueroa ENTERED: 08/20/23 08:16 SP TYPE: ECC OT DR: No Primary Care Phys Tissues: Endocervical Endocervical Procedures: Surgery Specimen Level IV HEADER OPERATION: Colposcopy PRE-OP DIAGNOSIS: ASCUS, HPV positive TISSUE SUBMITTED: A - Endocervical curettings, B - Cervix 6 o'clock MICROSCOPIC DIAGNOSIS A. Endocervical curettings: Scant fragments of benign ecto- and endocervical epithelium and mucous, negative for dysplasia. B. Cervix, 5 o'clock, biopsy: Acute and chronic inflammation. Negative for dysplasia. See comment. LUDY:sudha 08/21/2023 COMMENT B. Immunohistochemistry ([id number]) for surrogate HPV marker (p16) supports the above diagnosis. MICROSCOPIC DESCRIPTION Slides are reviewed. GROSS DESCRIPTION A - Received is a metallic endoscopic cytobrush with adherent minute fragments of martinez-red tissue brush in 2 ml of clear red fluid and labeled with the patient's name and and designated per the requisition as ECC . The material is dislodged from the brush and submitted for cytology preparation including cell block. B - Received in fixative is one container labeled with the patient's name and designated cervix 6 o'clock. The specimen consists of multiple irregular fragments of light martinez soft tissue mixed with mucoid tissue that in aggregate measure 1.0 x 0.5 x 0.2 cm. The specimen is totally submitted in one cassette. / LUDY:sudha 08/20/2023 TC:5 CPT: 12387 x2
--- OUTSIDE RECORDS SUMMARY | 2023-08-19 18:39 | XMS RPT_ITS | CCD ---
Author Name Unknown Address [address] [place] [id number] Organization [facility] Care Team Providers Care Clay Pigeon Loader Name Role Phone PINA SALAZAR Primary Care Physician MR. PINA SALAZAR Primary Care Unavailable MANOJ JACKSON Attending Unavailable Allergies Allergy Classification Reported Allergen(s) Allergy Type Date of Onset Reaction(s) Facility (1 source) Penicillin; Translations: [penicillin] Drug Allergy [facility] Medications Current Medications Medication Drug Class(es) Dates [...] 18:35-0400 Body height 168.1 cm MANOJ SHAHANABala [facility] 03-12-2022 18:35-0400 Body temperature 98.42 [degF] MANOJ SHAHANABala [facility] 03-12-2022 18:35-0400 Body weight 190 kg MANOJ SHAHANABala [facility] 03-12-2022 18:35-0400 Diastolic blood pressure 102 mm[Hg] MANOJ SHAHANABala [facility] 03-12-2022 18:35-0400 Heart rate 107 /min MANOJ JACKSON DO [facility] 03-12-2022 18:35-0400 Respiratory rate 20 /min MANOJ JACKSON DO [facility] 03-12-2022 18:35-0400 Systolic blood pressure 156 mm[Hg] MANOJ JACKSON DO [facility] Encounters Encounter Date Encounter Type Care Provider Facility Start: 03-12-2022 End: 03-12-2022 Emergency department patient visit MR. PINA PORTER SIRI Facility:B Start: 03-12-2022 End: 03-12-2022 Emergency department patient visit MANOJ JACKSON DO [facility] Procedures Date Procedure Procedure Detail Performing Clinician Start: 09-19-2012 Appendectomy MANOJ FR NGUYEN Immunizations Immunization Date Immunization Notes Care Provider Fa cili 03-24-2016 influenza virus vacc ine, unspecified formulation MANOJ JACKSON [facility] 01-02-2010 Human Papillomavirus Quadval MANOJ JACKSON [facility] 09-02-2009 Human Papillomavirus Quadval MANOJ JACKSON [facility] 07-05-2009 Human Papillomavirus Quadval MANOJ JACKSON [facility] 10-11-2000 measles/mumps/rubell a virus vaccine MANOJ JACKSON [facility] 10-11-2000 poliovirus vaccine, inactivated [facility] Payers Date Payer Category Payer Unknown [id number] 2022 Unknown [id number] 1995 Unknown [id number] Social History Date Type Detail Facility Tobacco smoking status Never smo ked tobacco (finding) [facility] Sex Assigned At Sex [facility] Evaluation + Plan note Note Date & Type Note Facility Evaluation + Plan note No data available for this section [facility] Hospital Discharge instructions Note Date & Type Note Facility Hospital Discharge instructions No data available for this section [facility] Progress note Note Date & Type Note Facility Progress note No data available for this section [facility] Summary Purpose Family History No Family History Records Found Advance Directives No Advanced Directives Records Found Additional Source Comments Care Team (unrecognized sect ion and content) Care Team Personnel Name: PINA PORTER Member Role: Primary Care Physician Address: Address: [address] [place] [address] Care Team Related Persons Name: RAKAN MONTES [...] BE BASED ON THE PRIMARY CLINICAL RECORDS. [employer] [facility]. provides no warranty or guarantee of the accuracy or completeness of information in this document.
[2023-08-21 09:45] LABS: Anti-Cardiolipin Ab, IgA, Qn < 9 APL U/mL (0-11); Anti-Cardiolipin Ab, IgG, Qn < 9 GPL U/mL (0-14); Anti-Cardiolipin Ab, IgM, Qn < 9 MPL U/mL (0-12); Beta-2-Glycoprotein I IgA <9 (0-25); Beta-2-Glycoprotein I IgG <9 (0-20); Beta-2-Glycoprotein I IgM <9 (0-32); Dilute Prothrombin Time (dPT) 29.1 sec (0.0-47.6); Dilute Russell Viper Venom 34.2 sec (0.0-47.0); Interpretation Comment: (.); PTT-LA 32.8 sec (0.0-43.5); Thrombin Time 17.5 sec (0.0-23.0); Treponema palladium Ab (FTA) Non Reactive (Non Reactive); dPT Confirm Ratio 1.28 Ratio (0.00-1.34)
== END | disposition home or self-care (01) ==
PROVIDERS: Referring Provider Obstetrics & Gynecology; Visit Provider Obstetrics & Gynecology
DX: Z11.51 Encounter for screening for human papillomavirus (HPV) (principal); N96 Recurrent pregnancy loss; A53.0 Latent syphilis, unspecified as early or late
CPT/HCPCS: 36415; 86146; 86147; 86780; 88305; 88341; 88342

== ENCOUNTER → 2024-07-23 | Outpatient (CLI) | payer BC, SELFPAY ==
[2024-07-30 08:24] LABS: HPV Reflexed? NOT INDICATED
== END | disposition home or self-care (01) ==
LOC: LABSPEC 16:53
PROVIDERS: Referring Provider Nurse Practitioner Family; Visit Provider Nurse Practitioner Family
DX: Z12.4 Encounter for screening for malignant neoplasm of cervix (principal)
CPT/HCPCS: 88175; G0145